=== PATIENT | male | born 1945 | race Caucasian/White ===

== ENCOUNTER 2024-06-03 08:42 | Day surgery (SDC) | payer OTHER, SELFPAY ==
[2024-06-03] VITALS (14 sets, daily range): BP systolic 103–140; BP diastolic 59–87; BMI 34.6
[2024-06-03 09:25] LABS: Glucose - Point of Care 118 mg/dl (70-99)
[2024-06-03] MEDS: NSS 332 ML IV (09:25)
[2024-06-03 09:26] LABS: Hematocrit 42.1 % (39.0-52.0); Hemoglobin 14.1 g/dL (13.0-18.0); Mean Corp Hgb Conc. 33.5 g/dL (33.0-37.0); Mean Corpuscular Hgb 29.3 pg (27.0-31.0); Mean Corpuscular Volume 87.3 fL (80.0-94.0); Mean Platelet Volume 8.4 fL (7.4-10.4); Platelet Count 173 10^3/uL (130-400); Red Blood Cell Count 4.82 10^6/uL (4.70-6.10); White Blood Cell Count 5.5 10^3/uL (4.8-10.8)
--- NOTE | 2024-06-03 09:56 | ITS.CL.CATH ---
Hypertrichologist - Catheterization
Cardiac Catheterization
Procedure Report:
LEFT HEART CATHETERIZATION AND CORONARY INTERVENTION
Date of Procedure: June 03, 2024
Referring: Flor Fregoso MD, [facility], [facility]
PROCEDURES:
1. Left heart catheterization, coronary angiogram.
2. Ultrasound-guided access
3. Successful percutaneous coronary intervention of a smooth tubular 70 to 80% distal RCA stenosis with a 3.25 x 18 mm Xience qamar point drug-eluting stent, postdilated with a 3.25 x 15 mm NC balloon at 20 melany with an excellent angiographic result.
INDICATION: Patient is a 78-year-old gentleman with past medical history of hypertension, hyperlipidemia, recently diagnosed type 2 diabetes mellitus on oral medications, coronary artery disease status post LAD/D2 bifurcation Prober in 2007, SVT,
paroxysmal atrial flutter status post ablation, no longer on full anticoagulation, squamous cell carcinoma, degenerative disc disease who was seen as an outpatient for evaluation of 3-week history of exertional chest discomfort and is now being
referred for a left heart catheterization to rule out obstructive coronary artery disease.
ACCESS: Right radial artery, 6 1 sheath, under ultrasound-guided
HEMODYNAMICS : (mmHg)
AO (s/d) : 138/70
LV (s/d) : 129/10
LVEDP : 19
CORONARY FINDINGS
DOMINANCE: Right
LEFT MAIN: The left main artery is a medium to large caliber vessel which is rise to the left anterior descending artery, and the left circumflex artery. There is 20% eccentric ostial left main stenosis and otherwise minimal luminal irregularities.
LEFT ANTERIOR DESCENDING: The left anterior descending artery is a medium caliber vessel which gives rise to 2 major diagonal branches as it courses to the anterior interventricular groove and wraps around the apex. LAD has mild diffuse
atherosclerotic plaque. D1 is a small caliber vessel with an ostial 70% stenosis and 70% stenosis in the midportion. D2 is a small to medium caliber vessel with a eccentric 70% ostial to proximal stenosis.
CIRCUMFLEX: The left circumflex is a medium caliber vessel which gives rise to 1 major branching obtuse marginal branch. Ostial left circumflex has an eccentric 50% stenosis. Proximal left circumflex has 30 to 40% stenosis.
RIGHT CORONARY ARTERY: The right coronary artery is a large-caliber, dominant vessel which gives rise to the right posterior descending artery and the right posterolateral system. Distal RCA has a smooth tubular 70 to 80% stenosis which is what was
intervened on during the study. Ostial RPDA and RPL branches have 40 to 50% stenosis.
CORONARY INTERVENTION: The right coronary artery was selectively engaged using a 6 [place] JR4 guide catheter. Additional heparin was given to maintain a therapeutic ACT throughout the case. A 190 cm 0.014' BMW coronary wire was carefully advanced
across the distal RCA stenosis into the RPL branch. The lesion was predilated using a 3.0 x 12 mm semicompliant balloon at 14 melany with good expansion. The lesion was subsequently stented using a 3.25 by 18 mm Xience qamar point drug-eluting stent,
postdilated using a 3.25 x 15 mm NC balloon at 20 melany with an excellent angiographic result. Patient was loaded with 600 mg of Plavix at the end of the case. No acute complications.
SEDATION: 61 minutes of procedural sedation was utilized. An independent medical assisting instructor was present to assist with and help manage the patient's level of consciousness and physiologic status.
RADIATION SUMMARY: Fluoro Time (min): 6.4, Dose (mGy): 641.5 DAP (Gy.cm2) : 53.5
Closure Device: Vascular band over right radial artery, 10 cc of air.
CONCLUSIONS
1. Successful percutaneous coronary intervention of a smooth tubular 70 to 80% distal RCA stenosis with a 3.25 x 18 mm Xience qamar point drug-eluting stent, postdilated with a 3.25 x 15 mm NC balloon at 20 melany with an excellent angiographic result.
2. Ostial left main has eccentric 20% stenosis.
3. D1 is a small caliber vessel with an ostial 70% stenosis and 70% stenosis in the midportion. D2 is a small to medium caliber vessel with a eccentric 70% ostial to proximal stenosis.
4. Ostial left circumflex has an eccentric 50% stenosis. Proximal left circumflex has 30 to 40% stenosis.
5. Ostial RPDA and RPL branches have 40 to 50% stenosis.
RECOMMENDATIONS
1. Dual antiplatelet therapy with daily baby aspirin and 75 mg of Plavix along with high intensity statin and beta-nery.
2. Given branch vessel disease we will continue with aggressive antianginal therapy.
3. Aggressive management of cardiovascular risk factors.
4. Referral for outpatient cardiac rehab and outpatient echocardiogram to reassess biventricular function.
Flor Fregoso MD, FACC, [id number]
[2024-06-03 10:56] LABS: ACT-LR - POC 306 Seconds (116-155)
[2024-06-03 11:14] LABS: ACT-LR - POC 260 Seconds (116-155)
[2024-06-03] MEDS: NSS 1000 IV (11:43)
--- NOTE | 2024-06-03 13:48 | W.PN.UPDATE ---
Update Note
Progress Note Update
Pt seen post RCA PCI. Right radial cath site with mild ecchymosis but no ht/bleeding, non tender. OOB ambulating. Post EKG SB 58, no acute changes, no vt/arrhythmia. Pt understands importance of uninterrupted DAPT w/asa, plavix. Will discontinue
simvastatin in favor of atorvastatin 40mg/daily. Hold metformin 48h post cath, ok to resume 06/05. Cardiac rehab consulted. Followup at [facility] as scheduled. Home later today if cath site/tele remain stable.
== END 2024-06-03 16:06 | disposition home or self-care (01) ==
LOC: CATH 08:42
PROVIDERS: ATTENDING PHYSICIAN Internal Medicine Interventional Cardiology; FAMILY PHYSICIAN Internal Medicine
DX: I25.10 Atherosclerotic heart disease of native coronary artery without angina pectoris (principal); I10 Essential (primary) hypertension; E78.5 Hyperlipidemia, unspecified; E11.9 Type 2 diabetes mellitus without complications; Z95.5 Presence of coronary angioplasty implant and graft; Z79.82 Long term (current) use of aspirin; Z79.02 Long term (current) use of antithrombotics/antiplatelets; Z79.84 Long term (current) use of oral hypoglycemic drugs
CPT/HCPCS: 99152; 99153; C1769; C1725; C1894; 82962; 85027; 85347; 93005; 93458; C1874; C9600; Q9967

== ENCOUNTER 2024-08-01 08:42 | Outpatient (RCR) | payer OTHER, SELFPAY ==
[2024-07-07 14:59] LABS: Glucose - Point of Care 86 mg/dl (70-99)
[2024-07-07 15:46] LABS: Glucose - Point of Care 136 mg/dl (70-99)
[2024-07-11 06:37] LABS: Glucose - Point of Care 122 mg/dl (70-99)
[2024-07-11 07:26] LABS: Glucose - Point of Care 100 mg/dl (70-99)
[2024-07-14 06:41] LABS: Glucose - Point of Care 92 mg/dl (70-99)
[2024-07-14 07:32] LABS: Glucose - Point of Care 109 mg/dl (70-99)
[2024-07-16 06:35] LABS: Glucose - Point of Care 107 mg/dl (70-99)
[2024-07-16 07:29] LABS: Glucose - Point of Care 100 mg/dl (70-99)
[2024-07-21 06:53] LABS: Glucose - Point of Care 104 mg/dl (70-99)
[2024-07-21 07:35] LABS: Glucose - Point of Care 85 mg/dl (70-99)
[2024-07-23 06:32] LABS: Glucose - Point of Care 115 mg/dl (70-99)
[2024-07-23 07:33] LABS: Glucose - Point of Care 106 mg/dl (70-99)
[2024-07-28 06:38] LABS: Glucose - Point of Care 93 mg/dl (70-99)
[2024-07-28 07:33] LABS: Glucose - Point of Care 112 mg/dl (70-99)
== END 2024-08-01 23:59 | disposition home or self-care (01) ==
LOC: CRHB 08:42
PROVIDERS: ATTENDING PHYSICIAN Internal Medicine Interventional Cardiology
DX: I25.10 Atherosclerotic heart disease of native coronary artery without angina pectoris (principal); Z95.5 Presence of coronary angioplasty implant and graft
CPT/HCPCS: 82962; 93797; 93798

== ENCOUNTER 2024-08-18 08:44 | Outpatient (RCR) | payer OTHER, SELFPAY | END 2024-08-18 23:59 | disposition home or self-care (01) | LOC: CRHB 08:44 | PROVIDERS: ATTENDING PHYSICIAN Internal Medicine Interventional Cardiology | DX: I25.10 Atherosclerotic heart disease of native coronary artery without angina pectoris (principal); Z95.5 Presence of coronary angioplasty implant and graft | CPT/HCPCS: 93797; 93798 ==